=== PATIENT | female | born 1970 | race Caucasian/White ===

== ENCOUNTER 2023-11-10 10:48 | Emergency (ER) | payer BC, SELFPAY ==
[2023-11-10 10:52] VITALS: BP 131/90
--- NOTE | 2023-11-10 11:57 | ED.GENMED ---
History of Present Illness
<Jeny Cummings PA-C - Last Filed: 11/10/23 17:20>
General
Chief Complaint: Chest Problem
Source: patient
Time Seen by Provider: 11/10/23 11:53
Travel History
Have you had any contact with someone who has COVID-19?: No
Do you have any symptoms of coronavirus? Fever > 100 degrees, chills, cough, shortness of breath, sore throat, loss of taste or smell, muscle aches, or headache?: No
History of Present Illness
History of Present Illness:
This is a 53-year-old female with a past medical history of MS, asthma, thoracic and cervical herniated disc disease, presenting emergency department today with right subscapular pain, and right-sided chest pain for the past 2 days. She states that
she has had the right-sided scapular pain for the past 4 weeks, but the chest pain started 2 days ago. She states that the pain is worse when she takes a deep breath. She does not have any associated shortness of breath. She states that her back
pain is worse when lying down but does not note any change to her chest pain with position. She denies any right upper quadrant pain, nausea, vomiting. She she denies any change to her symptoms with eating. She states that she has this chronic
back pain, but over the past 4 weeks it has been getting worse. She used to see a pain spinal specialist who would put her on and off courses of steroids. But she is never had this chest pain before. She notes that 2 weeks ago she was immobilized
in the car on the drive to [place] for 10 hours, denies any recent hospitalizations. Denies any exogenous estrogen. 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 She has no family history of
early cardiac disease. She has not smoke or use alcohol.
Past History
<Jeny Cummings PA-C - Last Filed: 11/10/23 17:20>
Past History
ED Past Medical History: Hypothyroidism and Other (MS)
ED Past Surgical History: Tonsilectomy and Other
Social History
Tobacco: Non-smoker
Review of Systems
<Jeny Cummings PA-C - Last Filed: 11/10/23 17:20>
Review of Systems
All Other Systems: ROS reviewed and negative except as documented in HPI and ROS
Phy Exam
<Jeny Cummings PA-C - Last Filed: 11/10/23 17:20>
Physical Exam
Physical Exam:
General: Patient is well-appearing in no acute distress
Skin: Skin is warm and dry, no rashes or lesions
Peripheral vascular: Brachial pulses 2+ and equal bilaterally. Dorsalis pedis pulses 2+ and equal bilaterally
Cardiac: No tenderness palpation of external chest wall. Heart is regular rate and rhythm, no murmurs.
Pulm: Normal respiratory effort, equal breath sounds bilaterally, no wheezes, normal
Abdomen: No abdominal tenderness
Musculoskeletal: There is some tenderness palpation of the right paracervical muscles, and some tenderness of the throat or trapezius. No midline tenderness. Patient has full range of motion of cervical spine. Limited range of motion of thoracic
spine secondary to pain.
Neurological: Patient has equal sensation to light touch bilaterally. Patient is awake and alert. CN II-XII intact.
Scores
<Jeny Cummings PA-C - Last Filed: 11/10/23 17:20>
PE Wells Score
Symptoms of DVT: No
No alternative diagnosis better explains the illness: Yes
Tachycardia with pulse > 100: No
Immobilization (>=3 days) or surgery within previous 4 weeks: No
Prior history of DVT or pulmonary embolism: No
Presence of hemoptysis: No
Presence of malignancy: No
Pulmonary Embolism Risk Score: 6
Probability of PE: Pt is moderate risk
PERC Rule Criteria
Age <50 years: No
HR <100 bpm: Yes
Room air oxygen sat >94%: Yes
History of DVT or PE: No
Recent trauma or surgery: No
Hemoptysis: No
Exogenous estrogen: No
Clinical signs suggestive of DVT: No
: No
Considered low risk for PE: Yes
PERC Score: 1
PE can be excluded by PERC: No
<Jesus Otoole MD - Last Filed: 11/11/23 10:02>
PE Wells Score
Pulmonary Embolism Risk Score: 6
Probability of PE: Pt is moderate risk
PERC Rule Criteria
PERC Score: 1
PE can be excluded by PERC: No
Course
<Jeny Cummings PA-C - Last Filed: 11/10/23 17:20>
Orders/Labs/Results
Orders:
Orders
11/10/23 10:57
EKG [Electrocardiogram (*1)] Urgent
Reason for Study: Chest Pain
11/10/23 10:58
EKG- Treatment ONCE
11/10/23 12:15
CR Chest - 2 Views Urgent
Comment:
Reason For Exam: shortness of breath, chest pain
11/10/23 12:18
Cardiac Monitoring- Treatment ONCE
11/10/23 12:19
Comprehensive Metabolic Panel Urgent
Troponin I Urgent
11/10/23 12:20
Complete Blood Count/With Diff Urgent
11/10/23 12:41
CT Chest Pe Study Urgent
Comment:
Reason For Exam: right sided CP
11/10/23 12:42
Dexamethasone Sod Phosphate [Decadron] 10 mg IV NOW STA
Abnormal Lab Results
11/10/23 11/10/23
12:19 12:20
Absolute Monos (auto) 0.9 H 10^3/uL
(0.1-0.6)
Monocytes % 10.7 H %
(1.7-9.3)
Carbon Dioxide 32 H mmol/L
(22-30)
BUN 24 H mg/dl
(7-17)
Glucose 103 H mg/dl
(70-99)
11/10/23 12:20
11/10/23 12:19
Vital Signs
Initial and Last Documented VS:
Initial Vital Signs
Temp Pulse Resp BP Pulse Ox
99.4 F 82 16 131/90 97
11/10/23 10:52 11/10/23 10:52 11/10/23 10:52 11/10/23 10:52 11/10/23 10:52
Last Documented Vital Signs
Temp Pulse Resp BP Pulse Ox
99.4 F 71 16 139/78 97
11/10/23 10:52 11/10/23 12:45 11/10/23 10:52 11/10/23 12:22 11/10/23 12:45
<Jesus Otoole MD - Last Filed: 11/11/23 10:02>
Orders/Labs/Results
Orders:
Orders
11/10/23 10:57
EKG [Electrocardiogram (*1)] Urgent
Reason for Study: Chest Pain
11/10/23 10:58
EKG- Treatment ONCE
11/10/23 12:15
CR Chest - 2 Views Urgent
Comment:
Reason For Exam: shortness of breath, chest pain
11/10/23 12:18
Cardiac Monitoring- Treatment ONCE
11/10/23 12:19
Comprehensive Metabolic Panel Urgent
Troponin I Urgent
11/10/23 12:20
Complete Blood Count/With Diff Urgent
11/10/23 12:41
CT Chest Pe Study Urgent
Comment:
Reason For Exam: right sided CP
11/10/23 12:42
Dexamethasone Sod Phosphate [Decadron] 10 mg IV NOW STA
Abnormal Lab Results
11/10/23 11/10/23
12:19 12:20
Absolute Monos (auto) 0.9 H 10^3/uL
(0.1-0.6)
Monocytes % 10.7 H %
(1.7-9.3)
Carbon Dioxide 32 H mmol/L
(22-30)
BUN 24 H mg/dl
(7-17)
Glucose 103 H mg/dl
(70-99)
11/10/23 12:20
11/10/23 12:19
Vital Signs
Initial and Last Documented VS:
Initial Vital Signs
Temp Pulse Resp BP Pulse Ox
99.4 F 82 16 131/90 97
11/10/23 10:52 11/10/23 10:52 11/10/23 10:52 11/10/23 10:52 11/10/23 10:52
Last Documented Vital Signs
Temp Pulse Resp BP Pulse Ox
99.4 F 71 16 139/78 97
11/10/23 10:52 11/10/23 12:45 11/10/23 10:52 11/10/23 12:22 11/10/23 12:45
<Jeny Cummings PA-C - Last Filed: 11/10/23 17:20>
MDM/Problems Addressed
Differential Diagnosis Includes:
Differentials include ACS, with PE, pneumonia, pneumothorax, herniated nucleus pulposus of the cervical spine, herniated nucleus pulposus of the thoracic spine, cholecystitis
MDM/Problems Addressed:
Chest pain
Back pain
Chronic conditions affecting care: Asthma and Other (MS--lesions have resolved per patient)
<HILARY Phelps Last Filed: 11/10/23 17:20>
*Radiology
Radiology exam reviewed: preliminary read by ED provider (no acute cardiopulmonary process)
*Pulse Oximetry
Patient hypoxic: no
*EKG
Interpreted by ED Provider?: Yes
EKG Intrepretation Date: 11/10/23
Interpretation: abnormal
Comparison EKG: no comparison EKG present
Heart Rate: 78
Rate: normal
Rhythm: sinus
Titus: normal axis
Interval: normal interval, normal QT interval and normal OK interval
QRS Pattern: normal QRS
Ischemia: no ischemia
*Critical Care Note
Total Time (30-74mins, 75-104mins- exclusive of procedures): Not Applicable
Data Reviewed
Review of Other/Old Records Reveals: Records (Reviewed ER physician documentation from 06/22/2021) and Discharge Summary (no recent hospitalizations.)
Ezequiellt;Jeny Cummings PA-C - Last Filed: 11/10/23 17:20>
Patient Management
Escalation/DeEscalation of care consider admission/obs:
53-year-old female with a past medical history of MS, thyroid disease, cervical and thoracic HNPs, asthma who is presenting to emergency department today with right-sided chest pain x 2 days, and right-sided back pain and neck for the past few
weeks. Here in the ER, patient's vitals are stable, her CBC and CMP are unremarkable, her EKG is normal sinus rhythm with no acute ischemic changes, troponin negative, and CT PE study negative for PE but did show right sided thyroid nodules.
Patient aware of thyroid nodules on CT and already has follow-up scheduled for ultrasound. These are being monitored.
Chest pain: Patient has never had chest pain before, and she does not have a history of early cardiac disease in her family. She does not have a history of hypertension, hyperlipidemia, alcohol use, tobacco use. Based on her workup, she does not
appear to have ACS or PE. I suspect her symptoms are likely musculoskeletal related, related to her heavy lifting at work. I advised patient importance of close follow-up with her primary care provider to ensure the resolution of the symptoms. I
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
Neck pain/back pain: Patient current symptoms I believe are related to her existing disc disease. Advised patient to follow-up with her spinal pain specialist, and sent patient home on prednisone taper, as this has worked for patient in the past.
ED Attending Note
<Jeny Cummings PA-C - Last Filed: 11/10/23 17:20>
-
Portions of this chart may have been created with voice recognition software.� Occasional wrong word or��sound alike� substitutions may have occurred due to the inherent limitations of voice recognition software.
<Jesus Otoole MD - Last Filed: 11/11/23 10:02>
ED Attending Note
Patient seen and examined by attending physician: Yes
ED Attending Note:
Patient with history of MS and chronic neck and back pain, presents to ED secondary to sudden onset of right-sided chest pain, shoulder pain, right back pain x 2 days. Denies fever or chills. Denies direct trauma. Denies nausea or vomiting.
Denies shortness of breath. Denies recent illness. Denies recent travel or surgery. Denies leg pain or swelling. Denies recent change in medications or diet. Patient states that she has daily pain in her back, but states that her symptoms are
different from her daily pain. She wanted to make sure that she was not having any heart or blood clotting issues. If not, patient has ongoing relationship with pain management physician, with whom she can outpatient.
Physical Exam
General: mild painful distress, not acutely ill. afebrile
Head: nc/at. eomi
Neck: supple. normal range of motion. no midline tenderness.
Heart: s1/s2 regular rate and rhythm, no murmur. equal radial pulses.
Lungs: no acute respiratory distress. clear bilaterally. right anterior chest wall tenderness to palpation.
Back: right upper back tenderness to palpation. no midline tenderness.
Abdomen: normal bowel sounds. not tender
Neuro: alert and oriented. no focal neurological deficits
Skin: no rash
Psychiatric: well kept. interactive and cooperative
Extremities: no edema. no calf tenderness.
CTA chest: no PE. History/exam likely consistent with musculoskeletal pain. As such, decision made to treat patient with tapered dose of prednisone, which patient states has helped in the past. 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
further evaluation and treatment. Advised to return to ED with worsening symptoms.
Discharge Plan
Departure
Patient Disposition: Home (Routine Discharge)
Date of Disposition: 11/10/23
Time of Disposition: 14:31
Patient with high blood pressure during this ER visit?: Yes
Condition: Good
Discharge Problem:
Chest pain, Back pain
Instructions: Herniated Disc (DC), Chest Pain (DC), BLOOD PRESSURE
Prescriptions:
New
prednisone 10 mg tablet
10 mg PO DIRECTED Qty: 45 0RF
Rx Instructions:
Please refer to discharge paper work for dosing instructions
No Action
rabies vacc,human diploid (PF) [Imovax Rabies Vaccine (PF)] 1 ML recon soln
1 ml IM . DIRECTED Qty: 1 0RF
Rx Instructions:
See Rabies Vaccine Post Exposure Prophylaxis Instruction Sheet for Dosing Instructions
doxycycline hyclate 100 MG capsule
500 mg PO Q12
metronidazole 500 MG tablet
500 mg PO TID
Referrals:
Katie Cowart MD [Family Provider] -
Activity Restrictions/Additional Instructions:
Prednisone Taper:
Day 1-3: Please take 5 tablets once daily
Day 4-6: Please take 4 tablets once daily
Day 7-9: Please take 3 tablets once daily
Day 10-11: Please take 2 tablets once daily
Day 12: Please take 1 tablet once daily
Please follow-up with your primary care provider and your pain specialist.
Please return to the emergency department for any concerns.
Interventions
Interventions:
*Risk Screen - Suicide Last Done: 11/10/23 10:52
*General Assessment Last Done: 11/10/23 10:52
*Neglect/Abuse Screening Last Done: 11/10/23 10:52
*Nursing Disposition Last Done: 11/10/23 14:36
ED- Cardiac Assessment Last Done: 11/10/23 12:21
ED- Pulmonary Assessment Last Done: 11/10/23 12:21
Discharge Date and Time
Discharge Date/Time: 11/10/23 14:37
[2023-11-10 12:22] VITALS: BP 139/78
[2023-11-10 12:40] LABS: % Basophils 0.6 % (0-2); % Eosinophils 1.5 % (0-6); % Immature Granulocytes 0.3 % (0-0.5); % Lymphocytes 32.3 % (20.5-51.1); % Monocytes 10.7 % (1.7-9.3); % Neutrophils 54.6 % (42.2-75.2); Absolute Basophils 0.1 10^3/uL (0-0.2); Absolute Eosinophils 0.1 10^3/uL (0-0.7); Absolute Lymphocytes 2.6 10^3/uL (1.2-3.4); Absolute Monocytes 0.9 10^3/uL (0.1-0.6); Absolute Neutrophils 4.3 10^3/uL (1.4-6.5); Hematocrit 43.2 % (37.0-47.0); Hemoglobin 14.5 g/dL (12.0-16.0); Mean Corp Hgb Conc. 33.6 g/dL (33.0-37.0); Mean Corpuscular Hgb 30.7 pg (27.0-31.0); Mean Corpuscular Volume 91.5 fL (81.0-99.0); Mean Platelet Volume 9.4 fL (7.4-10.4); Nucleated Red Blood Cells % 0 %; Platelet Count 354 10^3/uL (130-400); Red Blood Cell Count 4.72 10^6/uL (4.20-5.40); Red Cell Dist. Width 13.2 % (11.5-14.5); White Blood Cell Count 7.9 10^3/uL (4.8-10.8)
[2023-11-10 12:55] LABS: ALT (SGPT) 18 U/L (0-35); AST (SGOT) 23 U/L (14-36); Albumin 4.6 g/dl (3.5-5.0); Alkaline Phosphatase 80 U/L (38-126); Blood Urea Nitrogen 24 mg/dl (7-17); Calcium 9.6 mg/dl (8.4-10.2); Carbon Dioxide 32 mmol/L (22-30); Chloride 99 mmol/L (98-107); Glucose 103 mg/dl (70-99); Potassium 4.5 mmol/L (3.5-5.1); Sodium 139 mmol/L (135-145); Total Bilirubin 1.3 mg/dl (0.2-1.3); Total Protein 7.3 g/dl (6.3-8.2); eGFR > 60.00
[2023-11-10 13:11] LABS: Troponin I < 0.012 ng/ml
[2023-11-10] MEDS: DECADRON 10 MG IV (14:06)
== END 2023-11-10 14:37 | disposition home or self-care (01) ==
LOC: EMR 10:48
PROVIDERS: Physician Assistant; EMERGENCY PHYSICIAN Emergency Medicine; FAMILY PHYSICIAN Internal Medicine
DX: M54.6 Pain in thoracic spine (principal); R07.89 Other chest pain; G35 Multiple sclerosis; E03.9 Hypothyroidism, unspecified; G89.29 Other chronic pain; J45.909 Unspecified asthma, uncomplicated
CPT/HCPCS: 99284; 96374; 71046; 71275; 80053; 84484; 85025; 93005; Q9967